=== PATIENT | female | born 1950 | race Caucasian/White ===

== ENCOUNTER 2024-01-21 05:48 | Day surgery (SDC) | payer OTHER ==
[~2024-01-21 05:48] MED LIST: BUSPIRONE HCL7.5 MG; ENALAPRIL M1 MG/1 ML; RELAFEN DS1000 MG; RESTORIL30 MG; SINGULAIR4 M1; [UNRECOGNIZED DRUG - OTHER]
== END 2024-01-21 22:00 | disposition home or self-care (01) ==
LOC: CIR.AMB 05:48
PROVIDERS: ATTEND Surgery
DX: D05.12 Intraductal carcinoma in situ of left breast (principal); R59.0 Localized enlarged lymph nodes; F41.9 Anxiety disorder, unspecified; E11.9 Type 2 diabetes mellitus without complications; G56.00 Carpal tunnel syndrome, unspecified upper limb
CPT/HCPCS: 19301; 38525; 19281; L8699

== ENCOUNTER 2025-06-15 06:00 | Day surgery (SDC) | payer OTHER ==
[2025-06-12 11:03] LABS: BASO % 0.6 % (0.1-1.2); EOS # 0.17 (0.04-0.54); EOS % 3.4 % (0.7-7.0); LYMPH # 1.47 (1.18-3.74); LYMPH % 29.0 % (19.3-53.1); MEAN PLATELET VOLUME 9.60 fl (9.4-12.4); MONO # 0.35 (0.24-0.82); MONO % 6.9 % (4.7-12.5); NEUT # 3.04 (1.56-6.13); NEUT % 59.9 % (34.0-71.1); RED CELL DISTRIBUTION WIDTH 13.2 % (11.6-14.4); URINE APPEARANCE Clear; URINE BILIRRUBIN Negative (NEGATIVE); URINE BLOOD Negative; URINE COLOR Yellow; URINE GLUCOSE Negative (NEGATIVE); URINE KETONE Negative (NEGATIVE); URINE LEUKOCYTE Trace; URINE NITRATE Negative; URINE PROTEIN Negative (NEGATIVE); URINE UROBILINOGEN 0.2 E.U./dl
[2025-06-12 11:06] LABS: URINE BACTERIA 5.9 uL (0.0-1933); URINE EPITHELIAL CELLS 5.5 uL (0.0-38.8); URINE RBC 2.7 uL (0.0-20.8); URINE WBC 6.6 uL (0.0-23.2)
[2025-06-12 11:22] LABS: URINE CAST 0.00 uL (0.0-1.40)
[2025-06-12 11:44] LABS: COVID-19 AG NEGATIVE (NEGATIVE)
[2025-06-12 11:45] LABS: INR 0.96
[2025-06-12 12:20] LABS: ALT/SGPT 24.0 U/L (12-78); AST/SGOT 13.0 U/L (15-37); BILIRUBIN TOTAL 0.28 mg/dL (0.3-1.2); BUN CREA RATIO 18.0 (7.0-25.0); CREATININE SERUM 0.61 mg/dL (0.55-1.02); GFR 96.41; GLOBULINA 3.3 G/DL (2.4-3.5); GLUCOSE FASTING 147.0 mg/dL (65-100); OSMOLALITY SERUM 285.0 MOSM/KG (275-295)
[2025-06-12 14:00] VITALS: BP 170/100
[~2025-06-15] VITALS: Ht 149.9 cm; Wt 61.2 kg
[2025-06-15] MEDS ORDERED: CHLORHEXIDINE GLUCONATE 120 ML BOTTLE TOP ONE (07:21)
[2025-06-15] MEDS ORDERED: CEFAZOLIN SODIUM 1,000 MG VIAL ONE (12:29)
[2025-06-15] MEDS ORDERED: SUGAMMADEX SODIUM 200 MG/2 ML VIAL IV ONE (14:26)
[2025-06-15] MEDS ORDERED: ENALAPRILAT DIHYDRATE 1.25 MG/ML VIAL IV ONE (14:44)
== END 2025-06-15 16:40 | disposition home or self-care (01) ==
LOC: CIR.AMB 06:00
PROVIDERS: ATTEND Surgery
DX: C50.412 Malignant neoplasm of upper-outer quadrant of left female breast (principal)